=== PATIENT | female | born 2000 | race Caucasian/White ===

== ENCOUNTER → 2021-12-12 | Outpatient (CLI) | payer BC ==
--- NOTE | 2021-12-12 14:52 | XR ---
EXAMINATION TYPE: XR shoulder limited LT DATE OF EXAM: 12/12/2021 CLINICAL HISTORY: Pain after fall injury. TECHNIQUE: 2 views of the left are obtained. COMPARISON: None. FINDINGS: There is no acute fracture/dislocation evident in the left shoulder. The acromioclavicula r and glenohumeral joint spaces appear within normal limits. The visualized ribs are intact . IMPRESSION: There is no acute fracture or dislocation in the left shoulder.
== END | disposition home or self-care (01) ==
LOC: RADXRYALE 14:29
PROVIDERS: ATTEND Physician Assistant Medical
DX: M25.512 Pain in left shoulder (principal); W00.0XXA Fall on same level due to ice and snow, initial encounter

== ENCOUNTER 2021-12-14 10:59 | Emergency (ER) | payer BC ==
[2021-12-14 11:02] VITALS: RESP 18; TEMP 97.9
[2021-12-14] MEDS ORDERED: ONDANSETRON 4 MG/2 ML VIAL IVP STA (11:17)
[2021-12-14] MEDS ORDERED: SODIUM CHLORIDE 0.9% 1,000 ML IV STA (11:17)
[2021-12-14] MEDS ORDERED: KETOROLAC 15 MG/ML 1 ML VIAL IVP STA (11:17)
--- NOTE | 2021-12-14 11:21 | ED ---
General Adult HPI - General Chief complaint: Urogenital Stated complaint: Poss Kidney Stone Time Seen by Provider: 12/14/21 11:05 Source: patient Mode of arrival: ambulatory Limitations: no limitations - History of Present Illness Initial comments: This 21-year-old female past medical history of kidney stones presents to the emergency department with left-sided flank pain, nausea, vomiting since this morning. Patient states she woke up around 6 AM with nausea and vomiting and began to experience 6/10 left flank pain. Patient states this does feel like her past kidney stones. Patient states she has some left sided abdominal tenderness radiating to the left side of her back. Patient states she has vomited around 8 times this morning but denies any blood being present. Patient states she has been unable to keep water down since. Patient states lying on her side does seem to relieve the pain a little bit and moving around worsens the pain. Patient states her pain is now 9/10. Patient describes pain as sharp and stabbing in nature. Patient denies any blood in her urine. Patient denies any chest pain, shortness of breath, headache, dizziness, lightheadedness, change in bowel or bladder, bowel or bladder retention/incontinence, saddle anesthesia. - Related Data Home Medications Medication Instructions Recorded Confirmed Acetaminophen Tab [Tylenol Tab] 500 mg PO Q6H PRN 12/07/21 12/07/21 Previous Rx's Medication Instructions Recorded predniSONE 50 mg PO DAILY #5 tab 12/07/21 Ketorolac [Toradol] 10 mg PO Q8HR #16 tab 12/14/21 Ondansetron Odt [Zofran ODT] 4 mg PO Q8HR PRN #12 tab 12/14/21 Allergies Allergy/AdvReac Type Severity Reaction Status Date / Time No Known Allergies Allergy Verified 12/07/21 11:22 Review of Systems ROS Statement: Those systems with pertinent positive or pertinent negative responses have been documented in the HPI. ROS Other: All systems not noted in ROS Statement are negative. Past Medical History Past Medical History: No Reported History Additional Past Medical History / Comment(s): kidney stones History of Any Multi-Drug Resistant Organisms: None Reported Past Surgical History: Tonsillectomy Past Psychological History: No Psychological Hx Reported Smoking Status: Never smoker Past Alcohol Use History: None Reported Past Drug Use History: Marijuana General Exam Limitations: no limitations General appearance: alert, in no apparent distress Head exam: Present: atraumatic, normocephalic, normal inspection Eye exam: Present: PERRL, EOMI Pupils: Present: normal accommodation Neck exam: Present: full ROM Respiratory exam: Present: normal lung sounds bilaterally. Absent: respiratory distress, wheezes, rales, rhonchi, stridor Cardiovascular Exam: Present: regular rate, normal rhythm, normal heart sounds. Absent: systolic murmur, diastolic murmur, rubs, gallop, clicks GI/Abdominal exam: Present: soft, tenderness (Mild tenderness between right lowe r and right upper quadrant to palpation), normal bowel sounds. Absent: distended, guarding, rebound, rigid Extremities exam: Present: full ROM. Absent: tenderness, normal capillary refill, pedal edema, joint swelling, calf tenderness Back exam: Present: CVA tenderness (L). Absent: full ROM, tenderness, CVA tenderness (R) Neurological exam: Present: alert, oriented X3, CN II-XII intact Psychiatric exam: Present: normal affect, normal mood Skin exam: Present: warm, dry, intact, normal color. Absent: rash Course Vital Signs 12/14/21 12/14/21 10:59 14:54 Temperature 97.9 F Pulse Rate 68 70 Respiratory 18 18 Rate Blood Pressure 143/84 133/76 O2 Sat by Pulse 97 97 Oximetry Medical Decision Making - Medical Decision Making This 21-year-old female past medical history of kidney stones presented to the emergency department with left-sided flank pain, nausea, vomiting that began at [address] abdomen and pelvis showed 2 tiny lower pole nonobstructing left renal calculi. Mild hydronephrosis likely due to poorly visualized 1-2 mm proximal left ureter calculus. She was able to keep down fluids and crackers in the ER. After fluids, Toradol and morphine in the ER, patient states her pain has resolved and she feels much better. Toradol and Zofran given patient for home. Urine did not show any infection. Strict return precautions were discussed. Patient to follow-up with primary care provider or urologist next 24-48 hours. Patient pearly-self deplane. Patient sounds stable condition. - Lab Data Result diagrams: 12/14/21 11:38 12/14/21 11:38 Lab Results 12/14/21 12/14/21 12/14/21 Range/Units 11:38 11:38 11:38 WBC 20.1 H (3.8-10.6) k/uL RBC 5.19 (3.80-5.40) m/uL Hgb 14.1 (11.4-16.0) gm/dL Hct 43.6 (34.0-46.0) % MCV 83.9 (80.0-100.0) fL MCH 27.2 (25.0-35.0) pg MCHC 32.4 (31.0-37.0) g/dL RDW 14.2 (11.5-15.5) % Plt Count 415 (150-450) k/uL MPV 6.5 Neutrophils % 85 % Lymphocytes % 10 % Monocytes % 3 % Eosinophils % 1 % Basophils % 0 % Neutrophils # 17.1 H (1.3-7.7) k/uL Lymphocytes # 2.0 (1.0-4.8) k/uL Monocytes # 0.6 (0-1.0) k/uL Eosinophils # 0.1 (0-0.7) k/uL Basophils # 0.1 (0-0.2) k/uL PT 10.2 (9.0-12.0) sec INR 0.9 (<1.2) APTT 23.3 (22.0-30.0) sec Sodium 140 (137-145) mmol/L Potassium 4.0 (3.5-5.1) mmol/L Chloride 106 (98-107) mmol/L Carbon Dioxide 22 (22-30) mmol/L Anion Gap 12 mmol/L BUN 16 (7-17) mg/dL Creatinine 0.72 (0.52-1.04) mg/dL Est GFR (CKD-EPI)AfAm >90 (>60 ml/min/1.73 sqM) Est GFR (CKD-EPI)NonAf >90 (>60 ml/min/1.73 sqM) Glucose 131 H (74-99) mg/dL Plasma Lactic Acid Abner (0.7-2.0) mmol/L Calcium 9.7 (8.4-10.2) mg/dL Total Bilirubin 0.4 (0.2-1.3) mg/dL AST 20 (14-36) U/L ALT 17 (4-34) U/L Alkaline Phosphatase 85 (38-126) U/L Total Protein 7.2 (6.3-8.2) g/dL Albumin 4.2 (3.5-5.0) g/dL Lipase 49 (23-300) U/L Urine Color Urine Appearance (Clear) Urine pH (5.0-8.0) Ur Specific [place] (1.001-1.035) Urine Protein (Negative) Urine Glucose (UA) (Negative) Urine Ketones (Negative) Urine Blood (Negative) Urine Nitrite (Negative) Urine Bilirubin (Negative) Urine Urobilinogen (<2.0) mg/dL Ur Leukocyte Esterase (Negative) Urine RBC (0-5) /hpf Urine WBC (0-5) /hpf Ur Squamous Epith Cells (0-4) /hpf Urine Mucus (None) /hpf Urine HCG, Qual (Not Detectd) 12/14/21 12/14/21 12/14/21 Range/Units 11:38 12:56 12:56 WBC (3.8-10.6) k/uL RBC (3.80-5.40) m/uL Hgb (11.4-16.0) gm/dL Hct (34.0-46.0) % MCV (80.0-100.0) fL MCH (25.0-35.0) pg MCHC (31.0-37.0) g/dL RDW (11.5-15.5) % Plt Count (150-450) k/uL MPV Neutrophils % % Lymphocytes % % Monocytes % % Eosinophils % % Basophils % % Neutrophils # (1.3-7.7) k/uL Lymphocytes # (1.0-4.8) k/uL Monocytes # (0-1.0) k/uL Eosinophils # (0-0.7) k/uL Basophils # (0-0.2) k/uL PT (9.0-12.0) sec INR (<1.2) APTT (22.0-30.0) sec Sodium (137-145) mmol/L Potassium (3.5-5.1) mmol/L Chloride (98-107) mmol/L Carbon Dioxide (22-30) mmol/L Anion Gap mmol/L BUN (7-17) mg/dL Creatinine (0.52-1.04) mg/dL Est GFR (CKD-EPI)AfAm (>60 ml/min/1.73 sqM) Est GFR (CKD-EPI)NonAf (>60 ml/min/1.73 sqM) Glucose (74-99) mg/dL Plasma Lactic Acid Abner 2.0 (0.7-2.0) mmol/L Calcium (8.4-10.2) mg/dL Total Bilirubin (0.2-1.3) mg/dL AST (14-36) U/L ALT (4-34) U/L Alkaline Phosphatase (38-126) U/L Total Protein (6.3-8.2) g/dL Albumin (3.5-5.0) g/dL Lipase (23-300) U/L Urine Color Yellow Urine Appearance Cloudy H (Clear) Urine pH 6.0 (5.0-8.0) Ur Specific [place] 1.018 (1.001-1.035) Urine Protein Trace H (Negative) Urine Glucose (UA) Negative (Negative) Urine Ketones Negative (Negative) Urine Blood Large H (Negative) Urine Nitrite Negative (Negative) Urine Bilirubin Negative (Negative) Urine Urobilinogen <2.0 (<2.0) mg/dL Ur Leukocyte Esterase Negative (Negative) Urine RBC 66 H (0-5) /hpf Urine WBC 6 H (0-5) /hpf Ur Squamous Epith Cells 14 H (0-4) /hpf Urine Mucus Occasional H (None) /hpf Urine HCG, Qual Not Detected (Not Detectd) Disposition Clinical Impression: Kidney stone on left side Disposition: HOME SELF-CARE Condition: Stable Instructions (If sedation given, give patient instructions): Kidney Stones (ED), Acute Nausea and Vomiting (ED) Additional Instructions: Please return to the emergency department for any concerning, new, worsening symptoms. Please take Toradol as directed. Please take Zofran as directed. Please follow-up with primary care provider next 24-48 hours. Prescriptions: Ketorolac [Toradol] 10 mg PO Q8HR #16 tab Ondansetron Odt [Zofran ODT] 4 mg PO Q8HR PRN #12 tab PRN Reason: Nausea Is patient prescribed a controlled substance at d/c from ED?: No Referrals: Elia Lujan DO [Primary Care Provider] - 1-2 days Decision Time: 15:11
[2021-12-14 11:49] LABS: Basophils # (A) 0.1 k/uL (0-0.2); Basophils % (A) 0 %; Eosinophils # (A) 0.1 k/uL (0-0.7); Eosinophils % (A) 1 %; HCT 43.6 % (34.0-46.0); HGB 14.1 gm/dL (11.4-16.0); Lymphocytes % (A) 10 %; MCH 27.2 pg (25.0-35.0); MCHC 32.4 g/dL (31.0-37.0); MCV 83.9 fL (80.0-100.0); Mean Platelet Volume 6.5; Monocytes # (A) 0.6 k/uL (0-1.0); Monocytes % (A) 3 %; Neutrophils # (A) 17.1 k/uL (1.3-7.7); Neutrophils % (A) 85 %; Platelet Count 415 k/uL (150-450); RBC 5.19 m/uL (3.80-5.40); RDW 14.2 % (11.5-15.5); WBC 20.1 k/uL (3.8-10.6)
[2021-12-14 12:00] LABS: INR 0.9 (<1.2); Partial Thromboplastin Time 23.3 sec (22.0-30.0); Prothrombin Time 10.2 sec (9.0-12.0)
[2021-12-14 12:03] LABS: ALT 17 U/L (4-34); AST 20 U/L (14-36); African American GFR (CKD) >90 (>60 ml/min/1.73 sqM); Albumin 4.2 g/dL (3.5-5.0); Alkaline Phosphatase 85 U/L (38-126); Anion Gap 12 mmol/L; Blood Urea Nitrogen 16 mg/dL (7-17); Calcium 9.7 mg/dL (8.4-10.2); Carbon Dioxide 22 mmol/L (22-30); Chloride 106 mmol/L (98-107); Glucose 131 mg/dL (74-99); Lipase 49 U/L (23-300); Non-African American GFR(CKD) >90 (>60 ml/min/1.73 sqM); Sodium 140 mmol/L (137-145); Total Bilirubin 0.4 mg/dL (0.2-1.3); Total Protein 7.2 g/dL (6.3-8.2)
[2021-12-14 13:11] LABS: Appearance,Urine Cloudy (Clear); Bilirubin,Urine Negative (Negative); Blood,Urine Large (Negative); Color,Urine Yellow; Glucose,Urine (UA) Negative (Negative); Ketones,Urine Negative (Negative); Leukocyte Esterase,Urine Negative (Negative); Mucus,Urine Occasional /hpf; Nitrite,Urine Negative (Negative); Protein,Urine Trace (Negative); RBC,Urine 66 /hpf (0-5); Specific Gravity,Urine 1.018 (1.001-1.035); Squamous Epithelial Cell,Urine 14 /hpf (0-4); Urobilinogen,Urine <2.0 mg/dL (<2.0); WBC,Urine 6 /hpf (0-5)
--- NOTE | 2021-12-14 13:54 | CT ---
EXAMINATION TYPE: CT abdomen pelvis wo con DATE OF EXAM: 12/14/2021 HISTORY: LT FLANK PAIN CT DLP: 1277.4 mGycm. Automated Exposure Control for Dose Reduction was Utilized. TECHNIQUE: CT scan of the abdomen and pelvis is performed without oral or IV contrast. COMPARISON: NONE FINDINGS: Within the limitations of a non-contrast study, the following observations are made. LUNG BASES: No significant abnormality is appreciated. LIVER/GB: Visualized liver is heterogeneously hypodense suggesting diffuse fatty infiltration. PANCREAS: No significant abnormality is seen. SPLEEN: No significant abnormality is seen. ADRENALS: No significant abnormality is seen. KIDNEYS: No right-sided renal calculi or hydronephrosis.. There are 2 near 2.0 mm calculi in the lowe r pole left kidney. In addition there is mild left-sided hydronephrosis likely due to poorly visualiz ed 1 to 2 mm proximal ureter calculus on axial image 44 which is not well seen due to size along with surrounding fluid and fat stranding. There is no significant hydroureter distal to this. No intralum inal calculus in the poorly distended bladder. BOWEL: Slightly hyperdense but normal-size appendix. No suspicious small or large bowel dilatation. GENITAL ORGANS: Anteverted uterus. Normal-sized ovaries. LYMPH NODES: No greater than 1cm abdominal or pelvic lymph nodes are appreciated. OSSEOUS STRUCTURES: Posterior disc herniation L5-S1 level sagittal image 66. Multilevel facet arthrop athy mid to lower lumbar spine OTHER: No significant additional abnormality is seen. IMPRESSION: There are 2 tiny lower pole nonobstructing left renal calculi. There is mild hydronephros is likely due to poorly visualized 1 to 2 mm proximal left ureter calculus.
[2021-12-14] MEDS ORDERED: MORPHINE SULFATE 2 MG/ML SYRINGE IVP STA (14:34)
[2021-12-14 14:55] VITALS: BP 133/76; PULSE 70
== END 2021-12-14 15:33 | disposition home or self-care (01) ==
LOC: EC 10:59
DX: N20.0 Calculus of kidney (principal)
CPT/HCPCS: 36415; 80053; 83605; 83690; 85025; 85610; 85730; 81001; 81025; 74176; 99284; 96374; 96375; J2405; J2270; J1885